=== PATIENT | male | born 1970 | race Caucasian/White ===

== ENCOUNTER 2017-04-13 07:11 | Emergency (ER) | payer MEDICARE, OTHER ==
[2017-04-13 07:28] VITALS: RESP 20
[2017-04-13 07:34] VITALS: TEMP 97; O2SAT 100
[2017-04-13 07:47] VITALS: BP 122/70; PULSE 72
== END 2017-04-13 08:22 | disposition home or self-care (01) | DRG 153 ==
LOC: ED 07:11
DX: J02.8 Acute pharyngitis due to other specified organisms (principal)
CPT/HCPCS: 87430; 87804; 99282